=== PATIENT | male | born 1960 | race African-American/Black ===

== ENCOUNTER 2018-05-09 19:50 | Inpatient (IN) | payer SELFPAY ==
[~2018-05-09] VITALS: Ht 180.3 cm; Wt 81.0 kg
[2018-05-09] MEDS ORDERED: HYDRALAZINE 20MG/ML VIAL IV ONE (21:15)
[2018-05-09 21:49] LABS: BASOPHILS % 0.4 % (0.0-2.0); EOSINOPHILS % 3.7 % (0.0-5.0); HEMOGLOBIN. 12.8 g/dL (14.0-18.0); LYMPHOCYTES % 21.8 % (20.0-50.0); MEAN PLATELET VOLUME 8.8 fl (7.4-10.4); MONOCYTES % 9.8 % (2.0-8.0); NEUTROPHILS % 64.3 % (40.0-76.0); PLATELET 246 x1000/uL (130-400); RED BLOOD CELL COUNT 4.27 mill/uL (4.7-6.1); RED CELL DISTRIBUTION WIDTH 14.2 % (11.6-14.6)
[2018-05-09 21:56] LABS: CHLORIDE 103 mEq/L (98-107)
[2018-05-09] MEDS ORDERED: ASPIRIN 81MG TABLET PO NR (22:30)
[2018-05-09 23:12] LABS: INR 1.1; PROTHROMBIN TIME 10.6 sec (9.1-11.1)
[2018-05-10] VITALS (11 sets, daily range): BP systolic 136–212; BP diastolic 67–96
[2018-05-10] MEDS ORDERED: NIFEDIPINE XL 60MG TAB PO SCH ×2 (03:51→09:00)
[2018-05-10] MEDS: CLONIDINE 0.1MG TABLET PO PRN ×2 (04:05→10:01)
[2018-05-10 06:32] LABS: CHLORIDE 106 mEq/L (98-107)
[2018-05-10 06:41] LABS: LDL CHOLESTEROL 41 mg/dL (5-100)
[2018-05-10 06:43] LABS: CREATINE KINASE 249 IU/L (39-308); HDL CHOLESTEROL 56 mg/dL (40-59)
[2018-05-10 10:31] LABS: CLARITY URINE CLEAR (CLEAR); COLOR URINE YELLOW (YELLOW); KETONES URINE NEGATIVE (NEGATIVE); LEUKOCYTE ESTERASE URINE NEGATIVE (NEGATIVE); NITRITE URINE NEGATIVE (NEGATIVE); OCCULT BLOOD URINE NEGATIVE (NEGATIVE); PH URINE 6.5 (4.5-8.0); PROTEIN URINE NEGATIVE (NEGATIVE); SPECIFIC GRAVITY URINE 1.007 (1.005-1.030); UROBILINOGEN URINE 0.2 E.U./dL (0.2-1.0)
[2018-05-10] MEDS: LOSARTAN POTASSIUM 50 MG TABLET PO SCH (11:29)
[2018-05-10 12:50] LABS: *AMPHETAMINES SCREEN URINE NEGATIVE (NEGATIVE); *BARBITURATES SCREEN URINE NEGATIVE (NEGATIVE); *BENZODIAZEPINES SCREEN URINE NEGATIVE (NEGATIVE); *COCAINE SCREEN URINE NEGATIVE (NEGATIVE); CANNABINOID URINE SCREEN NEGATIVE (NEGATIVE); METHADONE URINE SCREEN NEGATIVE (NEGATIVE); OPIATES URINE SCREEN NEGATIVE (NEGATIVE); PHENCYCLIDINE URINE SCREEN NEGATIVE (NEGATIVE)
[2018-05-10] MEDS ORDERED: HYDRALAZINE HCL 25MG TABLET PO SCH (14:00)
[2018-05-10] MEDS: DILTIAZEM HCL 90MG TABLET PO SCH (18:11)
[2018-05-11] VITALS (10 sets, daily range): BP systolic 115–164; BP diastolic 51–89
[2018-05-11] MEDS: DILTIAZEM HCL 90MG TABLET PO SCH ×2 (00:54→06:11)
[2018-05-11 07:16] LABS: CHLORIDE 105 mEq/L (98-107)
[2018-05-11 07:18] LABS: BASOPHILS % 0.6 % (0.0-2.0); EOSINOPHILS % 2.1 % (0.0-5.0); HEMATOCRIT. 35.5 % (42.0-52.0); HEMOGLOBIN. 12.5 g/dL (14.0-18.0); LYMPHOCYTES % 28.2 % (20.0-50.0); MEAN CORPUSCULAR HEMOGLOBIN 31.3 pg (28.0-32.0); MEAN CORPUSCULAR VOLUME 88.6 fL (80.0-94.0); MEAN PLATELET VOLUME 8.8 fl (7.4-10.4); MONOCYTES % 11.1 % (2.0-8.0); PLATELET 231 x1000/uL (130-400); RED CELL DISTRIBUTION WIDTH 14.2 % (11.6-14.6)
[2018-05-11 07:48] LABS: PHOSPHORUS 2.3 mg/dL (2.5-4.9)
[2018-05-11] MEDS: LOSARTAN POTASSIUM 50 MG TABLET PO SCH (09:03)
[2018-05-11] MEDS ORDERED: DILTIAZEM HCL 300MG CAPSULE SR 24HR PO SCH (12:10)
[2018-05-12] MEDS ORDERED: LOSARTAN POTASSIUM 100 MG TABLET PO SCH (09:00)
== END 2018-05-11 12:55 | disposition home or self-care (01) | DRG 190 ==
LOC: ER 19:50 → EDBEDREQ 23:57 → 3WST 23:58 → EDBEDREQSVC 05-10 00:03 → ENRESERV 05-10 01:53
PROVIDERS: ADMIT Internal Medicine; ATTEND Internal Medicine
DX: I21.4 Non-ST elevation (NSTEMI) myocardial infarction (principal); E83.51 Hypocalcemia; I11.9 Hypertensive heart disease without heart failure; F17.290 Nicotine dependence, other tobacco product, uncomplicated; I16.1 Hypertensive emergency; I16.0 Hypertensive urgency; R04.0 Epistaxis; Z91.14 Patient's other noncompliance with medication regimen; Z88.0 Allergy status to penicillin
CPT/HCPCS: 36415; 71045; 80048; 80053; 80061; 80305; 81003; 82550; 82553; 83036; 83735; 83880; 84100; 84443; 84484; 85025; 85610; 87086; 93005; 93306; 96374; 99291; J0360; J7040